=== PATIENT | female | born 1955 | race Asian ===

== ENCOUNTER 2018-10-04 17:59 | Inpatient (IN) | payer MEDICAID ==
[2018-10-04 22:34] LABS: ADD MAN DIFF? NO
[2018-10-04 22:36] LABS: BASOPHIL # 0.1 10^3/ul (0.0-0.1); BASOPHILS % 1.1 % (0.0-2.0); EOSINOPHILS # 0.1 10^3/ul (0.0-0.5); EOSINOPHILS % 0.7 % (0.0-7.0); HEMATOCRIT 38.7 % (37.0-47.0); HEMOGLOBIN 12.8 g/dl (12.0-16.0); LYMPHOCYTES # 1.5 10^3/ul (0.8-2.9); LYMPHOCYTES % 16.9 % (15.0-51.0); MEAN CORPUSCULAR HEMOGLOBIN 27.9 pg (29.0-33.0); MEAN CORPUSCULAR HGB CONC 33.1 g/dl (32.0-37.0); MEAN CORPUSCULAR VOLUME 84.5 fl (82.0-101.0); MEAN PLATELET VOLUME 8.6 fl (7.4-10.4); MONOCYTE # 0.8 10^3/ul (0.3-0.9); MONOCYTES % 8.6 % (0.0-11.0); NEUTROPHIL # 6.3 10^3/ul (1.6-7.5); PLATELET COUNT 639 10^3/UL (140-415); RED BLOOD COUNT 4.58 10^6/ul (4.20-5.40); RED CELL DISTRIBUTION WIDTH 13.2 % (11.5-14.5)
[2018-10-04 22:36] LABS: WHITE BLOOD COUNT 8.8 10^3/ul (4.8-10.8)
[2018-10-04] MEDS: SOD CHLORIDE 0.9% 1,000 ML IV (22:40)
[2018-10-04] MEDS: ONDANSETRON 4 MG INJ IV (22:40)
[2018-10-04] MEDS: morphine 4 MG/ML VIAL IV (22:41)
[2018-10-04 22:54] LABS: ALANINE AMINOTRANSFERASE 17 IU/L (13-69); ALBUMIN 3.8 g/dl (3.3-4.9); ALBUMIN/GLOBULIN RATIO 0.95; ALKALINE PHOSPHATASE 74 IU/L (42-121); AMYLASE 73 U/L (11-123); ANION GAP 14 (5-13); ASPARTATE AMINO TRANSFERASE 36 IU/L (15-46); BILIRUBIN,INDIRECT 0.4 mg/dl (0-1.1); BILIRUBIN,TOTAL 0.4 mg/dl (0.2-1.3); BLOOD UREA NITROGEN 9 mg/dl (7-20); CALCIUM 9.2 mg/dl (8.4-10.2); CARBON DIOXIDE 26 mmol/L (21-31); CHLORIDE 92 mmol/L (97-110); CREATININE 0.69 mg/dl (0.44-1.00); Estimated GFR > 60 mL/min (>60); GLUCOSE 109 mg/dl (70-220); LIPASE 90 U/L (23-300); POTASSIUM 4.1 mmol/L (3.5-5.1); SODIUM 132 mmol/L (135-144); TOTAL PROTEIN 7.8 g/dl (6.1-8.1)
[2018-10-04 22:59] LABS: INR 1.02; PROTIME 13.5 Sec (11.9-14.9); PT RATIO 1.1
[2018-10-04 23:00] LABS: PARTIAL THROMBOPLASTIN TIME 36.8 Sec (23.0-35.0)
[2018-10-04 23:06] LABS: TROPONIN-I < 0.012 ng/ml (0.000-0.120)
[2018-10-05] MEDS ORDERED: DOCUSATE SODIUM 100 MG CAP PO (03:30)
[2018-10-05] MEDS ORDERED: morphine 2 MG INJ IV (03:30)
[2018-10-05] MEDS ORDERED: ONDANSETRON 4 MG INJ IV (03:30)
[2018-10-05] MEDS ORDERED: ACETAMINOPHEN 325 MG TAB PO (03:30)
[2018-10-05] MEDS ORDERED: NACL 0.9% 3 ML SYG IV (03:30)
[2018-10-05] MEDS ORDERED: BISACODYL (EC) 5 MG TAB PO (03:30)
[2018-10-05 06:17] LABS: ADD MAN DIFF? NO; HAAIG REFLEX REFLEX FILED
[2018-10-05 06:20] LABS: ABNORMAL IP MESSAGE 1; BASOPHIL # 0.1 10^3/ul (0.0-0.1); BASOPHILS % 0.8 % (0.0-2.0); EOSINOPHILS % 0.3 % (0.0-7.0); HEMATOCRIT 33.6 % (37.0-47.0); HEMOGLOBIN 11.1 g/dl (12.0-16.0); LYMPHOCYTES # 0.6 10^3/ul (0.8-2.9); LYMPHOCYTES % 7.8 % (15.0-51.0); MEAN CORPUSCULAR HEMOGLOBIN 28.2 pg (29.0-33.0); MEAN CORPUSCULAR VOLUME 85.3 fl (82.0-101.0); MEAN PLATELET VOLUME 8.8 fl (7.4-10.4); MONOCYTE # 0.7 10^3/ul (0.3-0.9); NEUTROPHILS % 81.4 % (39.0-77.0); PLATELET COUNT 595 10^3/UL (140-415); RED BLOOD COUNT 3.94 10^6/ul (4.20-5.40); RED CELL DISTRIBUTION WIDTH 13.2 % (11.5-14.5)
[2018-10-05 06:20] LABS: WHITE BLOOD COUNT 7.4 10^3/ul (4.8-10.8)
[2018-10-05 06:49] LABS: ALANINE AMINOTRANSFERASE 12 IU/L (13-69); ALBUMIN 3.3 g/dl (3.3-4.9); ALBUMIN/GLOBULIN RATIO 0.97; ALKALINE PHOSPHATASE 60 IU/L (42-121); ANION GAP 11 (5-13); ASPARTATE AMINO TRANSFERASE 30 IU/L (15-46); BILIRUBIN,INDIRECT 0.4 mg/dl (0-1.1); BILIRUBIN,TOTAL 0.4 mg/dl (0.2-1.3); BLOOD UREA NITROGEN 8 mg/dl (7-20); CALCIUM 8.5 mg/dl (8.4-10.2); CARBON DIOXIDE 23 mmol/L (21-31); CHLORIDE 98 mmol/L (97-110); CHOLESTEROL 182 mg/dl (100-200); CREATININE 0.51 mg/dl (0.44-1.00); Estimated GFR > 60 mL/min (>60); GLUCOSE 108 mg/dl (70-220); HDL CHOLESTEROL 26 mg/dl (35-98); LDL CHOLESTEROL,CALCULATED 138 mg/dl; POTASSIUM 4.2 mmol/L (3.5-5.1); SODIUM 132 mmol/L (135-144); TOTAL PROTEIN 6.7 g/dl (6.1-8.1); TRIGLYCERIDES 88 mg/dl (0-149)
[2018-10-05 07:16] LABS: ALPHA FETOPROTEIN 4.23 IU/L (0.00-7.21)
[2018-10-05 07:32] LABS: HEPATITIS B SURFACE ANTIBODY POSITIVE (NEGATIVE)
[2018-10-05 07:35] LABS: HEMOGLOBIN A1C 5.6 % (0-5.9)
[2018-10-05 08:28] LABS: CANCER ANTIGEN 19-9 48.3 U/ml (0.0-37.0); CARCINOEMBRYONIC ANTIGEN 0.6 ng/ml (0.0-5.0)
[2018-10-05] MEDS: LIDOCAINE 1% (MPF) 5 ML VIAL (10:44)
[2018-10-05] MEDS: BARIUM SULF 2% 450 ML BTL (BERRY SMOOTHIE) PO (11:16)
[2018-10-05] MEDS: IOHEXOL 14.3 MG(I)/ML (ADULT) BTL PO (11:16)
[2018-10-05] MEDS: SOD CHLORIDE 0.9% 100 ML (11:33)
[2018-10-05] MEDS: IOHEXOL 300MG/ML 150 ML BTL (11:33)
[2018-10-05 11:42] LABS: ADD UMIC YES; UR ASCORBIC ACID NEGATIVE (NEGATIVE); UR BACTERIA FEW /HPF (NONE SEEN); UR BILIRUBIN (Dip) NEGATIVE (NEGATIVE); UR BLOOD (Dip) 1+ mg/dL (NEGATIVE); UR CLARITY CLEAR (CLEAR); UR COLOR AMBER (YELLOW); UR GLUCOSE (Dip) NEGATIVE (NEGATIVE); UR KETONES (Dip) 1+ mg/dL (NEGATIVE); UR LEUKOCYTE ESTERASE (Dip) NEGATIVE Leu/ul (NEGATIVE); UR MUCUS MODERATE /HPF (NONE SEEN); UR NITRITE (Dip) NEGATIVE (NEGATIVE); UR RBC 5 /HPF (0-5); UR SPECIFIC GRAVITY (Dip) 1.023 (1.003-1.030); UR TOTAL PROTEIN (Dip) 1+ mg/dl (NEGATIVE); UR UROBILINOGEN (Dip) NEGATIVE (NEGATIVE); UR WBC 7 /HPF (0-5)
[2018-10-05 13:02] LABS: HEPATITIS B SURFACE ANTIGEN NEGATIVE (NEGATIVE)
[2018-10-05 13:19] LABS: HEPATITIS B CORE ANTIBODY REACTIVE (NEGATIVE); HEPATITIS C VIRAL ANTIBODY NEGATIVE (NEGATIVE)
[2018-10-05 13:29] LABS: FLD MN% 92.5 %; FLD PMN% 7.5 %; FLD RBC 22000 /uL
[2018-10-05 13:31] LABS: LACTATE DEHYDROGENASE 1409 IU/L (313-618)
[2018-10-05 13:32] LABS: FLD MN% 85.2 %; FLD PMN% 14.8 %; FLD RBC 3000 /uL
[2018-10-05 13:33] LABS: FLUID GLUCOSE 37 mg/dl; FLUID TYPE THORACENTESIS FLUID
[2018-10-05 13:36] LABS: LACTATE DEHYDROGENASE 922 IU/L (313-618)
[2018-10-05 13:37] LABS: FLUID TYPE PARACENTESIS FLUID
[2018-10-05 13:38] LABS: FLUID GLUCOSE 82 mg/dl
[2018-10-05 16:12] LABS: FLD CLARITY CLOUDY; FLD COLOR AMBER
[2018-10-05 16:12] LABS: FLD TYPE THORACENTHESIS
[2018-10-05 16:13] LABS: FLD TYPE PARACENTHESIS
[2018-10-05 16:13] LABS: FLD WBC 1267 /cmm
[2018-10-05 16:14] LABS: FLD CLARITY HAZY; FLD COLOR YELLOW; FLD WBC 2472 /cmm
[2018-10-05 22:19] LABS: ADD UMIC YES; UR ASCORBIC ACID NEGATIVE (NEGATIVE); UR BILIRUBIN (Dip) NEGATIVE (NEGATIVE); UR BLOOD (Dip) 1+ mg/dL (NEGATIVE); UR CLARITY CLEAR (CLEAR); UR COLOR YELLOW (YELLOW); UR GLUCOSE (Dip) NEGATIVE (NEGATIVE); UR KETONES (Dip) NEGATIVE (NEGATIVE); UR LEUKOCYTE ESTERASE (Dip) NEGATIVE Leu/ul (NEGATIVE); UR NITRITE (Dip) NEGATIVE (NEGATIVE); UR RBC 1 /HPF (0-5); UR SQUAMOUS EPITHELIAL CELL FEW /HPF (FEW); UR TOTAL PROTEIN (Dip) NEGATIVE (NEGATIVE); UR UROBILINOGEN (Dip) NEGATIVE (NEGATIVE); UR WBC 1 /HPF (0-5)
[2018-10-06 00:26] LABS: CANCER ANTIGEN 15-3 411 U/mL (<32)
[2018-10-06 06:09] LABS: ADD MAN DIFF? NO
[2018-10-06 06:14] LABS: BASOPHIL # 0.1 10^3/ul (0.0-0.1); BASOPHILS % 0.7 % (0.0-2.0); EOSINOPHILS # 0.1 10^3/ul (0.0-0.5); HEMATOCRIT 41.2 % (37.0-47.0); HEMOGLOBIN 13.4 g/dl (12.0-16.0); LYMPHOCYTES # 1.4 10^3/ul (0.8-2.9); LYMPHOCYTES % 17.2 % (15.0-51.0); MEAN CORPUSCULAR HEMOGLOBIN 27.8 pg (29.0-33.0); MEAN CORPUSCULAR HGB CONC 32.5 g/dl (32.0-37.0); MEAN CORPUSCULAR VOLUME 85.5 fl (82.0-101.0); MEAN PLATELET VOLUME 8.6 fl (7.4-10.4); MONOCYTE # 0.8 10^3/ul (0.3-0.9); MONOCYTES % 9.7 % (0.0-11.0); NEUTROPHIL # 5.7 10^3/ul (1.6-7.5); NEUTROPHILS % 70.7 % (39.0-77.0); PLATELET COUNT 696 10^3/UL (140-415); RED BLOOD COUNT 4.82 10^6/ul (4.20-5.40); RED CELL DISTRIBUTION WIDTH 13.2 % (11.5-14.5)
[2018-10-06 06:51] LABS: ALANINE AMINOTRANSFERASE 16 IU/L (13-69); ALBUMIN 3.5 g/dl (3.3-4.9); ALBUMIN/GLOBULIN RATIO 0.92; ALKALINE PHOSPHATASE 71 IU/L (42-121); ANION GAP 12 (5-13); ASPARTATE AMINO TRANSFERASE 39 IU/L (15-46); BILIRUBIN,INDIRECT 0.4 mg/dl (0-1.1); BILIRUBIN,TOTAL 0.4 mg/dl (0.2-1.3); BLOOD UREA NITROGEN 6 mg/dl (7-20); CALCIUM 9.2 mg/dl (8.4-10.2); CARBON DIOXIDE 25 mmol/L (21-31); CHLORIDE 97 mmol/L (97-110); CREATININE 0.66 mg/dl (0.44-1.00); Estimated GFR > 60 mL/min (>60); GLUCOSE 112 mg/dl (70-220); SODIUM 134 mmol/L (135-144); TOTAL PROTEIN 7.3 g/dl (6.1-8.1)
[2018-10-06 06:52] LABS: PHOSPHORUS 4.1 mg/dl (2.5-4.9)
[2018-10-06 09:00] LABS: PATH REVIEW? YES
[2018-10-06] MEDS: LIDOCAINE 1% (MPF) 5 ML VIAL (09:05)
[2018-10-06 12:17] LABS: FLD RBC 8000 /uL; FLD WBC 514 /cmm
[2018-10-06 12:22] LABS: FLUID GLUCOSE 34 mg/dl; FLUID TYPE PLEURAL FLUID
[2018-10-06 12:23] LABS: FLUID LD 1593 U/L; FLUID TYPE PLEURAL FLUID
[2018-10-06 12:24] LABS: ALBUMIN 2.2 g/dl (3.3-4.9)
[2018-10-06 12:24] LABS: FLUID AMYLASE < 30 U/L; FLUID TOTAL PROTEIN 4.3 g/dl
[2018-10-06 12:27] LABS: FLUID TYPE PLEURAL FLUID
[2018-10-06 13:04] LABS: FLD TYPE PLEURAL
[2018-10-06 13:05] LABS: FLD CLARITY CLOUDY; FLD COLOR AMBER; PATH REVIEW? YES
[2018-10-06 13:37] LABS: FLD MN% 89.3 %; FLD PMN% 10.7 %
[2018-10-06 17:22] LABS: ALPHA 1 ANTITRYPSIN >300 mg/dL (83-199)
[2018-10-07 07:15] LABS: ADD MAN DIFF? NO
[2018-10-07 07:27] LABS: BASOPHIL # 0.1 10^3/ul (0.0-0.1); BASOPHILS % 0.9 % (0.0-2.0); EOSINOPHILS # 0.1 10^3/ul (0.0-0.5); EOSINOPHILS % 1.4 % (0.0-7.0); HEMOGLOBIN 12.9 g/dl (12.0-16.0); LYMPHOCYTES # 1.1 10^3/ul (0.8-2.9); LYMPHOCYTES % 13.5 % (15.0-51.0); MEAN CORPUSCULAR HEMOGLOBIN 27.9 pg (29.0-33.0); MEAN CORPUSCULAR HGB CONC 33.1 g/dl (32.0-37.0); MEAN CORPUSCULAR VOLUME 84.2 fl (82.0-101.0); MEAN PLATELET VOLUME 8.7 fl (7.4-10.4); MONOCYTE # 0.8 10^3/ul (0.3-0.9); MONOCYTES % 9.4 % (0.0-11.0); NEUTROPHILS % 74.1 % (39.0-77.0); PLATELET COUNT 685 10^3/UL (140-415); RED BLOOD COUNT 4.63 10^6/ul (4.20-5.40); RED CELL DISTRIBUTION WIDTH 13.4 % (11.5-14.5)
[2018-10-07 07:27] LABS: WHITE BLOOD COUNT 8.1 10^3/ul (4.8-10.8)
[2018-10-07 07:50] LABS: ALANINE AMINOTRANSFERASE 22 IU/L (13-69); ALBUMIN 3.3 g/dl (3.3-4.9); ALBUMIN/GLOBULIN RATIO 0.94; ALKALINE PHOSPHATASE 64 IU/L (42-121); ANION GAP 10 (5-13); ASPARTATE AMINO TRANSFERASE 42 IU/L (15-46); BILIRUBIN,INDIRECT 0.4 mg/dl (0-1.1); BILIRUBIN,TOTAL 0.4 mg/dl (0.2-1.3); BLOOD UREA NITROGEN 6 mg/dl (7-20); CARBON DIOXIDE 28 mmol/L (21-31); CHLORIDE 97 mmol/L (97-110); CREATININE 0.68 mg/dl (0.44-1.00); Estimated GFR > 60 mL/min (>60); GLUCOSE 105 mg/dl (70-220); POTASSIUM 4.5 mmol/L (3.5-5.1); SODIUM 135 mmol/L (135-144); TOTAL PROTEIN 6.8 g/dl (6.1-8.1)
[2018-10-07] MEDS: PANTOPRAZOLE (EC) 40 MG TAB PO (20:39)
[2018-10-08] MEDS: PANTOPRAZOLE (EC) 40 MG TAB PO (05:10)
[2018-10-08 06:24] LABS: ADD MAN DIFF? NO
[2018-10-08 06:32] LABS: WHITE BLOOD COUNT 7.7 10^3/ul (4.8-10.8)
[2018-10-08 06:32] LABS: BASOPHIL # 0.1 10^3/ul (0.0-0.1); BASOPHILS % 1.2 % (0.0-2.0); EOSINOPHILS # 0.3 10^3/ul (0.0-0.5); EOSINOPHILS % 3.5 % (0.0-7.0); HEMATOCRIT 37.6 % (37.0-47.0); HEMOGLOBIN 12.5 g/dl (12.0-16.0); LYMPHOCYTES # 1.3 10^3/ul (0.8-2.9); LYMPHOCYTES % 16.5 % (15.0-51.0); MEAN CORPUSCULAR HEMOGLOBIN 27.9 pg (29.0-33.0); MEAN CORPUSCULAR HGB CONC 33.2 g/dl (32.0-37.0); MEAN CORPUSCULAR VOLUME 83.9 fl (82.0-101.0); MEAN PLATELET VOLUME 8.6 fl (7.4-10.4); MONOCYTE # 0.7 10^3/ul (0.3-0.9); MONOCYTES % 8.4 % (0.0-11.0); NEUTROPHIL # 5.4 10^3/ul (1.6-7.5); NEUTROPHILS % 69.6 % (39.0-77.0); PLATELET COUNT 727 10^3/UL (140-415); RED BLOOD COUNT 4.48 10^6/ul (4.20-5.40); RED CELL DISTRIBUTION WIDTH 13.2 % (11.5-14.5)
[2018-10-08 06:43] LABS: PHOSPHORUS 4.6 mg/dl (2.5-4.9)
[2018-10-08 07:05] LABS: ALANINE AMINOTRANSFERASE 27 IU/L (13-69); ALBUMIN 3.2 g/dl (3.3-4.9); ALBUMIN/GLOBULIN RATIO 0.88; ALKALINE PHOSPHATASE 66 IU/L (42-121); ANION GAP 9 (5-13); ASPARTATE AMINO TRANSFERASE 50 IU/L (15-46); BILIRUBIN,INDIRECT 0.4 mg/dl (0-1.1); BILIRUBIN,TOTAL 0.4 mg/dl (0.2-1.3); BLOOD UREA NITROGEN 8 mg/dl (7-20); CARBON DIOXIDE 27 mmol/L (21-31); CHLORIDE 97 mmol/L (97-110); CREATININE 0.64 mg/dl (0.44-1.00); Estimated GFR > 60 mL/min (>60); GLUCOSE 102 mg/dl (70-220); POTASSIUM 4.1 mmol/L (3.5-5.1); SODIUM 133 mmol/L (135-144); TOTAL PROTEIN 6.8 g/dl (6.1-8.1)
[2018-10-08] MEDS: ENOXAPARIN 40 MG/0.4 ML SYG SC (08:57)
[2018-10-08] MEDS ORDERED: LIDOCAINE 1% (MPF) 5 ML VIAL (12:03)
[2018-10-09] MEDS: PANTOPRAZOLE (EC) 40 MG TAB PO (05:52)
[2018-10-09] MEDS: ENOXAPARIN 40 MG/0.4 ML SYG SC (09:08)
[2018-10-09] MEDS: AL HYDROX/MG HYDROX/SIMETH 30 ML CUP PO (21:32)
[2018-10-10] MEDS: PANTOPRAZOLE (EC) 40 MG TAB PO (05:58)
[2018-10-10] MEDS: ENOXAPARIN 40 MG/0.4 ML SYG SC (08:12)
[2018-10-10] MEDS: ALBUMIN HUMAN 25% 50 ML IV (22:18)
[2018-10-11 05:18] LABS: ADD MAN DIFF? NO
[2018-10-11] MEDS: PANTOPRAZOLE (EC) 40 MG TAB PO (05:28)
[2018-10-11 05:31] LABS: BASOPHIL # 0.1 10^3/ul (0.0-0.1); BASOPHILS % 1.5 % (0.0-2.0); EOSINOPHILS # 0.2 10^3/ul (0.0-0.5); EOSINOPHILS % 3.7 % (0.0-7.0); HEMATOCRIT 35.8 % (37.0-47.0); HEMOGLOBIN 11.8 g/dl (12.0-16.0); LYMPHOCYTES # 1.1 10^3/ul (0.8-2.9); LYMPHOCYTES % 18.3 % (15.0-51.0); MEAN PLATELET VOLUME 8.3 fl (7.4-10.4); MONOCYTE # 0.6 10^3/ul (0.3-0.9); MONOCYTES % 9.8 % (0.0-11.0); NEUTROPHIL # 3.9 10^3/ul (1.6-7.5); NEUTROPHILS % 65.7 % (39.0-77.0); PLATELET COUNT 706 10^3/UL (140-415); RED BLOOD COUNT 4.21 10^6/ul (4.20-5.40); RED CELL DISTRIBUTION WIDTH 13.5 % (11.5-14.5)
[2018-10-11] MEDS: ALBUMIN HUMAN 25% 50 ML IV ×2 (05:31→13:08)
[2018-10-11 05:51] LABS: MAGNESIUM 2.2 mg/dl (1.7-2.5)
[2018-10-11 05:58] LABS: ALANINE AMINOTRANSFERASE 37 IU/L (13-69); ALBUMIN 3.5 g/dl (3.3-4.9); ALBUMIN/GLOBULIN RATIO 1.06; ALKALINE PHOSPHATASE 62 IU/L (42-121); ANION GAP 5 (5-13); ASPARTATE AMINO TRANSFERASE 78 IU/L (15-46); BILIRUBIN,INDIRECT 0.3 mg/dl (0-1.1); BILIRUBIN,TOTAL 0.3 mg/dl (0.2-1.3); BLOOD UREA NITROGEN 7 mg/dl (7-20); CALCIUM 8.9 mg/dl (8.4-10.2); CARBON DIOXIDE 30 mmol/L (21-31); CHLORIDE 99 mmol/L (97-110); CREATININE 0.69 mg/dl (0.44-1.00); Estimated GFR > 60 mL/min (>60); GLUCOSE 98 mg/dl (70-220); POTASSIUM 4.5 mmol/L (3.5-5.1); SODIUM 134 mmol/L (135-144); TOTAL PROTEIN 6.8 g/dl (6.1-8.1)
[2018-10-11] MEDS: DOCUSATE SODIUM 100 MG CAP PO (09:01)
[2018-10-11] MEDS: ENOXAPARIN 40 MG/0.4 ML SYG SC (09:04)
[2018-10-11] MEDS ORDERED: SPIRONOLACTONE 25 MG TAB PO (21:00)
[2018-10-11] MEDS ORDERED: FAMOTIDINE 20 MG TAB PO (21:00)
== END 2018-10-11 17:15 | disposition home or self-care (01) | DRG 844 ==
LOC: 2NE 10-06 13:05 → E/R 17:59 → 2NE 10-06 18:16 → 5EC 10-05 03:14
PROC: 0W993ZX Drainage of Right Pleural Cavity, Percutaneous Approach, Diagnostic (ICD-10-PCS; 2018-10-05)
PROC: 0W9G3ZX Drainage of Peritoneal Cavity, Percutaneous Approach, Diagnostic (ICD-10-PCS; 2018-10-05)
PROC: 0W9B3ZX Drainage of Left Pleural Cavity, Percutaneous Approach, Diagnostic (ICD-10-PCS; principal; 2018-10-06)
DX: C80.0 Disseminated malignant neoplasm, unspecified (principal); R18.0 Malignant ascites; E87.1 Hypo-osmolality and hyponatremia; J91.0 Malignant pleural effusion
CPT/HCPCS: 71045; 71250; 74176; 74177; 76705; 76942; 80053; 80061; 81001; 82040; 82042; 82103; 82105; 82150; 82306; 82378; 82945; 83036; 83615; 83690; 83735; 84100; 84157; 84443; 84484; 85025; 85610; 85730; 86300; 86301; 86304; 86305; 86704; 86706; 86709; 86803; 87070; 87075; 87102; 87116; 87340; 88104; 88305; 88313; 89051; 93005; 93306; 96374; 96375; 99217; 99285-25

== ENCOUNTER 2018-10-14 09:38 | Emergency (ER) | payer MEDICAID ==
[2018-10-14 10:24] LABS: ADD MAN DIFF? NO
[2018-10-14 10:31] LABS: WHITE BLOOD COUNT 6.7 10^3/ul (4.8-10.8)
[2018-10-14 10:31] LABS: BASOPHIL # 0.1 10^3/ul (0.0-0.1); BASOPHILS % 1.3 % (0.0-2.0); EOSINOPHILS # 0.1 10^3/ul (0.0-0.5); EOSINOPHILS % 2.1 % (0.0-7.0); HEMATOCRIT 38.6 % (37.0-47.0); HEMOGLOBIN 12.4 g/dl (12.0-16.0); LYMPHOCYTES # 1.3 10^3/ul (0.8-2.9); LYMPHOCYTES % 19.5 % (15.0-51.0); MEAN CORPUSCULAR HEMOGLOBIN 28.1 pg (29.0-33.0); MEAN CORPUSCULAR HGB CONC 32.1 g/dl (32.0-37.0); MEAN CORPUSCULAR VOLUME 87.5 fl (82.0-101.0); MEAN PLATELET VOLUME 8.2 fl (7.4-10.4); MONOCYTE # 0.5 10^3/ul (0.3-0.9); MONOCYTES % 7.7 % (0.0-11.0); NEUTROPHIL # 4.6 10^3/ul (1.6-7.5); NEUTROPHILS % 68.8 % (39.0-77.0); PLATELET COUNT 625 10^3/UL (140-415); RED BLOOD COUNT 4.41 10^6/ul (4.20-5.40); RED CELL DISTRIBUTION WIDTH 13.9 % (11.5-14.5)
[2018-10-14 10:49] LABS: ANION GAP 9 (5-13); BLOOD UREA NITROGEN 9 mg/dl (7-20); CALCIUM 9.1 mg/dl (8.4-10.2); CARBON DIOXIDE 27 mmol/L (21-31); CHLORIDE 102 mmol/L (97-110); CREATININE 0.66 mg/dl (0.44-1.00); Estimated GFR > 60 mL/min (>60); GLUCOSE 99 mg/dl (70-220); POTASSIUM 4.3 mmol/L (3.5-5.1); SODIUM 138 mmol/L (135-144)
[2018-10-14 11:01] LABS: TROPONIN-I < 0.012 ng/ml (0.000-0.120)
== END 2018-10-14 11:49 | disposition home or self-care (01) ==
LOC: E/R 09:38
DX: J90 Pleural effusion, not elsewhere classified (principal); R40.2142 Coma scale, eyes open, spontaneous, at arrival to emergency department; R40.2362 Coma scale, best motor response, obeys commands, at arrival to emergency department; R40.2252 Coma scale, best verbal response, oriented, at arrival to emergency department; Z85.43 Personal history of malignant neoplasm of ovary
CPT/HCPCS: 36415; 71045; 80048; 84484; 85025; 93005; 99285-25